=== PATIENT | female | born 1930 | race Two or more races ===

== ENCOUNTER 2017-08-31 14:11 | Outpatient (CLI) | payer OTHER | END 2017-08-31 16:10 | disposition home or self-care (01) | LOC: RAD 501 14:11 | DX: S20.219A Contusion of unspecified front wall of thorax, initial encounter (principal) ==

== ENCOUNTER 2017-09-19 08:26 | Outpatient (CLI) | payer OTHER | END 2017-09-19 08:35 | disposition home or self-care (01) | LOC: LAB 08:26 | DX: E55.9 Vitamin D deficiency, unspecified (principal); E21.3 Hyperparathyroidism, unspecified; E88.89 Other specified metabolic disorders; M81.8 Other osteoporosis without current pathological fracture; E83.42 Hypomagnesemia; E56.1 Deficiency of vitamin K; E03.8 Other specified hypothyroidism; M85.88 Other specified disorders of bone density and structure, other site ==